=== PATIENT | female | born 2000 | race Caucasian/White ===

== ENCOUNTER 2023-11-15 18:06 | Outpatient (CLI) | payer OTHER, SELFPAY | END 2023-11-15 18:07 | disposition home or self-care (01) | PROVIDERS: Visit Provider Emergency Medicine | DX: F32.89 Other specified depressive episodes (principal); G43.009 Migraine without aura, not intractable, without status migrainosus; K21.9 Gastro-esophageal reflux disease without esophagitis | CPT/HCPCS: 82306; 82728; 84436; 84443 ==